=== PATIENT | male | born 1980 | race Caucasian/White ===

== ENCOUNTER 2023-09-04 13:07 | Outpatient (CLI) | payer BC | END 2023-09-04 23:59 | disposition home or self-care (01) | LOC: MRI 13:07 | PROVIDERS: ATTEND Physician Assistant Surgical | DX: S82.121A Displaced fracture of lateral condyle of right tibia, initial encounter for closed fracture (principal); M25.561 Pain in right knee; M25.461 Effusion, right knee; M25.361 Other instability, right knee; M71.21 Synovial cyst of popliteal space [Baker], right knee; S83.241A Other tear of medial meniscus, current injury, right knee, initial encounter; S83.511A Sprain of anterior cruciate ligament of right knee, initial encounter; X58.XXXA Exposure to other specified factors, initial encounter; Y93.89 Activity, other specified; Y92.89 Other specified places as the place of occurrence of the external cause; Y99.8 Other external cause status | CPT/HCPCS: 73721 ==